=== PATIENT | male | born 1965 | race Caucasian/White ===

== ENCOUNTER 2018-05-20 20:17 | Inpatient (IN) ==
[2018-05-20] MEDS ORDERED: ONDANSETRON 4 MG/2 ML VIAL IV STA (20:41)
[2018-05-20] MEDS ORDERED: ALUM/MAG/SIMETH/LIDO VISC 1:1 30 ML BOTTLE PO STA (20:41)
[2018-05-20] MEDS ORDERED: MORPHINE 4 MG/1 ML VIAL ONE (20:58)
[2018-05-20] MEDS ORDERED: MORPHINE 4 MG/1 ML VIAL IV STA ×2 (20:58→21:46)
[2018-05-20] MEDS ORDERED: hydrALAZINE 20 MG/1 ML VIAL IV STA (21:00)
[2018-05-20 21:08] LABS: Basophils # 0.1 10*3/uL (0.0-0.2); Basophils % 1.7 % (0.0-0.8); Eosinophils # 0.4 10*3/uL (0.0-0.87); Eosinophils % 5.4 % (0.00-10.9); Hematocrit 44.8 VOL% (42.0-52.0); Hemoglobin 15.3 GM/DL (14.0-18.0); Immature Granulocytes % 0.7 %; Immature Granulocytes Absolute 0.06 #; Lymphocytes # 2.8 10*3/uL (1.4-4.0); Lymphocytes % 34.5 % (21.2-54.2); Mean Corpuscular HGB Conc 34.2 GM/DL (32-36); Mean Corpuscular Hemoglobin 31 PG (27-34); Mean Corpuscular Volume 90.7 FL (87-102); Mean Platelet Volume 9.4 FL (9.6-12.0); Monocytes # 0.9 10*3/uL (0.11-0.8); Monocytes % 10.6 % (1.7-12.7); Neutrophils # 3.8 10*3/uL (1.4-7.4); Neutrophils % 47.1 % (38.7-73.9); Platelet Count 306 T/CUMM (130-400); Red Blood Count 4.94 MC/CUMM (3.8-5.5); Red Cell Distribution Width 13.1 % (9.3-17.3); White Blood Count 8.1 T/CUMM (4-12)
[2018-05-20 21:31] LABS: Lactic Acid 1.6 MMOL/L (0.4-2.0)
[2018-05-20 21:32] LABS: Alanine Aminotransferase 62 U/L (16-61); Albumin 4.2 G/DL (3.4-5.0); Alkaline Phosphatase 129 U/L (45-117); Aspartate Amino Transferase 36 U/L (0-37); Blood Urea Nitrogen 11 MG/DL (7-18); Calcium 8.8 MG/DL (8.5-10.1); Glucose 107 MG/DL (74-106); Osmolality,Calculated 271.8 MOS/KG (273-304); Potassium 3.4 MMOL/L (3.5-5.1); Sodium 137 MMOL/L (136-145); Total Protein 8.6 G/DL (6.4-8.3); Troponin I < 0.015 NG/ML (0.00-0.045)
[2018-05-20] MEDS ORDERED: PROMETHAZINE INJ 12.5 MG in SODIUM CHLORIDE 0.9% 50 ML IV STA (21:46)
[2018-05-21] MEDS ORDERED: SODIUM CHLORIDE 0.9% 1,000 ML IV STA (01:11)
[2018-05-21] MEDS ORDERED: PIPERACILLIN/TAZOBACTAM 2,250 MG in SODIUM CHLORIDE 0.9% 100 ML IV STA (01:11)
[2018-05-21] MEDS ORDERED: PIPERACILLIN/TAZOBACTAM 3,375 MG in SODIUM CHLORIDE 0.9% 100 ML IV STA (01:14)
[2018-05-21] MEDS ORDERED: ONDANSETRON 4 MG/2 ML VIAL IV PRN (01:39)
[2018-05-21] MEDS: MORPHINE 4 MG/1 ML VIAL IV PRN (02:30)
[2018-05-21] MEDS: DEXTROSE 5% NACL 0.45% 1,000 ML IV SCH ×3 (02:33→22:24)
[2018-05-21 09:24] LABS: Basophils # 0.1 10*3/uL (0.0-0.2); Basophils % 0.4 % (0.0-0.8); Eosinophils % 0.2 % (0.00-10.9); Hematocrit 42.7 VOL% (42.0-52.0); Hemoglobin 14.7 GM/DL (14.0-18.0); Immature Granulocytes % 0.6 %; Immature Granulocytes Absolute 0.08 #; Lymphocytes # 1.5 10*3/uL (1.4-4.0); Lymphocytes % 11.8 % (21.2-54.2); Mean Corpuscular HGB Conc 34.4 GM/DL (32-36); Mean Corpuscular Hemoglobin 31 PG (27-34); Mean Corpuscular Volume 89.5 FL (87-102); Mean Platelet Volume 9.4 FL (9.6-12.0); Monocytes # 1.4 10*3/uL (0.11-0.8); Monocytes % 10.9 % (1.7-12.7); Neutrophils # 9.7 10*3/uL (1.4-7.4); Neutrophils % 76.1 % (38.7-73.9); Platelet Count 254 T/CUMM (130-400); Red Blood Count 4.77 MC/CUMM (3.8-5.5); Red Cell Distribution Width 13.3 % (9.3-17.3); White Blood Count 12.7 T/CUMM (4-12)
[2018-05-21] MEDS: cefOXitin 2,000 MG in SYRINGE 1 EACH IV SCH ×2 (09:28→19:24)
[2018-05-21 09:59] LABS: Albumin 3.9 G/DL (3.4-5.0); Bilirubin,Total 1.6 MG/DL (0.2-1.0); Calcium 8.7 MG/DL (8.5-10.1); Osmolality,Calculated 268.1 MOS/KG (273-304); Potassium 3.9 MMOL/L (3.5-5.1); Total Protein 7.8 G/DL (6.4-8.3)
[2018-05-21] MEDS: PANTOPRAZOLE 40 MG TABLET PO SCH (11:19)
[2018-05-21] MEDS ORDERED: TISSUE ADHESIVE 1 EACH APPLICATOR TOP ONE (14:09)
[2018-05-21] MEDS ORDERED: LIDOCAINE 1%/EPI INJ 20 ML VIAL ONE (14:09)
[2018-05-21] MEDS ORDERED: SUGAMMADEX 200 MG/2 ML VIAL IV ONE (15:15)
[2018-05-21] MEDS ORDERED: fentaNYL 100 MCG/2 ML VIAL ONE (15:31)
[2018-05-21] MEDS ORDERED: MIDAZOLAM 2 MG/2 ML VIAL ONE (15:31)
[2018-05-21] MEDS ORDERED: PROPOFOL 200 MG/20 ML VIAL IV ONE (15:31)
[2018-05-21] MEDS ORDERED: ONDANSETRON 4 MG/2 ML VIAL ONE (15:31)
[2018-05-21] MEDS ORDERED: LACTATED RINGERS 1,000 ML IV ONE (15:32)
[2018-05-21] MEDS ORDERED: SODIUM CHLORIDE 0.9% 100 ML IV ONE (15:32)
[2018-05-21] MEDS ORDERED: ROCURONIUM 100 MG/10 ML VIAL IV ONE (15:32)
[2018-05-21] MEDS ORDERED: NEOSTIGMINE 10 MG/10 ML VIAL ONE (15:32)
[2018-05-21] MEDS ORDERED: GLYCOPYRROLATE 0.4 MG/2 ML VIAL ONE (15:32)
[2018-05-21] MEDS ORDERED: PHENYLEPHRINE 1 MG/10 ML SYRINGE IV ONE (15:35)
[2018-05-21] MEDS ORDERED: HYDROmorphone 2 MG/1 ML VIAL ONE (15:48)
[2018-05-21] MEDS ORDERED: HYDROmorphone 2 MG/1 ML VIAL IV PRN (15:49)
[2018-05-22] MEDS: DEXTROSE 5% NACL 0.45% 1,000 ML IV SCH ×4 (05:11→23:42)
[2018-05-22 07:44] LABS: Basophils # 0.1 10*3/uL (0.0-0.2); Basophils % 0.5 % (0.0-0.8); Eosinophils # 0.1 10*3/uL (0.0-0.87); Eosinophils % 1.2 % (0.00-10.9); Hematocrit 41.3 VOL% (42.0-52.0); Hemoglobin 13.7 GM/DL (14.0-18.0); Immature Granulocytes % 0.4 %; Immature Granulocytes Absolute 0.05 #; Lymphocytes % 17.7 % (21.2-54.2); Mean Corpuscular HGB Conc 33.2 GM/DL (32-36); Mean Corpuscular Hemoglobin 31 PG (27-34); Mean Corpuscular Volume 92.2 FL (87-102); Mean Platelet Volume 9.3 FL (9.6-12.0); Monocytes # 1.4 10*3/uL (0.11-0.8); Monocytes % 12.4 % (1.7-12.7); Neutrophils # 7.7 10*3/uL (1.4-7.4); Neutrophils % 67.8 % (38.7-73.9); Platelet Count 232 T/CUMM (130-400); Red Blood Count 4.48 MC/CUMM (3.8-5.5); Red Cell Distribution Width 13.8 % (9.3-17.3); White Blood Count 11.4 T/CUMM (4-12)
[2018-05-22 08:22] LABS: Albumin 3.4 G/DL (3.4-5.0); Bilirubin,Total 1.6 MG/DL (0.2-1.0); Calcium 8.5 MG/DL (8.5-10.1); Osmolality,Calculated 270.8 MOS/KG (273-304); Total Protein 7.2 G/DL (6.4-8.3)
[2018-05-22] MEDS: PANTOPRAZOLE 40 MG TABLET PO SCH (09:03)
[2018-05-22] MEDS: PIPERACILLIN/TAZOBACTAM 3,375 MG in SODIUM CHLORIDE 0.9% 100 ML IV SCH ×2 (09:38→17:28)
[2018-05-22] MEDS: MORPHINE 4 MG/1 ML VIAL IV PRN (11:44)
[2018-05-23] MEDS: PIPERACILLIN/TAZOBACTAM 3,375 MG in SODIUM CHLORIDE 0.9% 100 ML IV SCH ×2 (00:35→09:00)
[2018-05-23 04:29] LABS: Basophils # 0.1 10*3/uL (0.0-0.2); Eosinophils # 0.3 10*3/uL (0.0-0.87); Eosinophils % 4.6 % (0.00-10.9); Hematocrit 39.2 VOL% (42.0-52.0); Hemoglobin 12.7 GM/DL (14.0-18.0); Immature Granulocytes % 0.4 %; Immature Granulocytes Absolute 0.03 #; Lymphocytes # 1.5 10*3/uL (1.4-4.0); Mean Corpuscular HGB Conc 32.4 GM/DL (32-36); Mean Corpuscular Hemoglobin 30 PG (27-34); Mean Corpuscular Volume 93.1 FL (87-102); Mean Platelet Volume 10.2 FL (9.6-12.0); Monocytes # 0.9 10*3/uL (0.11-0.8); Monocytes % 12.7 % (1.7-12.7); Neutrophils # 4.1 10*3/uL (1.4-7.4); Neutrophils % 59.3 % (38.7-73.9); Platelet Count 193 T/CUMM (130-400); Red Blood Count 4.21 MC/CUMM (3.8-5.5); Red Cell Distribution Width 13.8 % (9.3-17.3); White Blood Count 6.9 T/CUMM (4-12)
[2018-05-23 04:52] LABS: Albumin 2.8 G/DL (3.4-5.0); Bilirubin,Total 1.8 MG/DL (0.2-1.0); Calcium 7.6 MG/DL (8.5-10.1); Osmolality,Calculated 275.4 MOS/KG (273-304); Total Protein 6.9 G/DL (6.4-8.3)
[2018-05-23] MEDS: PANTOPRAZOLE 40 MG TABLET PO SCH (09:01)
[2018-05-23] MEDS: DEXTROSE 5% NACL 0.45% 1,000 ML IV SCH (10:39)
[2018-05-23] MEDS ORDERED: POLYETHYLENE GLYCOL POWDER 17 GM PACK PO PRN (14:27)
[2018-05-24 06:25] LABS: Albumin 3.3 G/DL (3.4-5.0); Bilirubin,Total 1.3 MG/DL (0.2-1.0); Calcium 8.8 MG/DL (8.5-10.1); Osmolality,Calculated 271.8 MOS/KG (273-304); Total Protein 7.5 G/DL (6.4-8.3)
[2018-05-24 08:57] VITALS: BP 136/88
[2018-05-24] MEDS: PANTOPRAZOLE 40 MG TABLET PO SCH (09:51)
== END 2018-05-24 10:11 | disposition home or self-care (01) | DRG 418 ==
LOC: N.ED 20:17 → N.EDINP 05-21 01:38 → N.4E 05-21 02:11
PROVIDERS: ADMIT Surgery; ATTEND Surgery
PROC: LAPCHOL (2018-05-21 14:23)

== ENCOUNTER 2018-11-07 03:16 | Inpatient (IN) ==
[2018-11-07] MEDS ORDERED: ONDANSETRON 4 MG/2 ML VIAL IV STA (04:46)
[2018-11-07] MEDS ORDERED: KETOROLAC 30 MG/1 ML VIAL IV STA (04:46)
[2018-11-07] MEDS ORDERED: HYDROmorphone 2 MG/1 ML VIAL IV STA (04:46)
[2018-11-07] MEDS ORDERED: SODIUM CHLORIDE 0.9% 1,000 ML IV STA (04:46)
[2018-11-07 05:00] LABS: Basophils # 0.1 10*3/uL (0.0-0.2); Basophils % 0.8 % (0.0-0.8); Eosinophils # 0.3 10*3/uL (0.0-0.87); Eosinophils % 3.2 % (0.00-10.9); Hematocrit 42.8 VOL% (42.0-52.0); Hemoglobin 14.8 GM/DL (14.0-18.0); Immature Granulocytes % 0.6 %; Immature Granulocytes Absolute 0.06 #; Lymphocytes # 1.2 10*3/uL (1.4-4.0); Mean Corpuscular HGB Conc 34.6 GM/DL (32-36); Mean Corpuscular Volume 91.1 FL (87-102); Mean Platelet Volume 9.7 FL (9.6-12.0); Monocytes % 8.5 % (1.7-12.7); Neutrophils % 73.9 % (38.7-73.9); Platelet Count 244 T/CUMM (130-400); Red Cell Distribution Width 13.3 % (9.3-17.3); White Blood Count 9.4 T/CUMM (4-12)
[2018-11-07 05:29] LABS: Albumin 4.3 G/DL (3.4-5.0); Bilirubin,Total 1.2 MG/DL (0.2-1.0); Calcium 9.2 MG/DL (8.5-10.1); Osmolality,Calculated 276.7 MOS/KG (273-304); Total Protein 7.7 G/DL (6.4-8.3)
[2018-11-07 05:51] LABS: Apearance,Urine CLEAR (Clear); Bilirubin,Urine Negative (Negative); Blood, Urine Negative (Negative); Glucose,Urine (UA) Negative (Negative); Ketones,Urine Negative (Negative); Mucus,Urine Occasional /LPF (Occasional); Nitrite,Urine Negative (Negative); Protein,Urine Negative; RBC,Urine 1 /HPF (0-4); Squamous Epithelial Cell,Urine Occasional /HPF (0-10); Urine Color Yellow (Yellow); Urine Specific Gravity 1.019 (1.001-1.035); WBC,Urine <1 /HPF (0-6)
[2018-11-07] MEDS ORDERED: PROMETHAZINE 25 MG/1 ML VIAL IM PRN (07:34)
[2018-11-07] MEDS ORDERED: ACETAMINOPHEN 325 MG TABLET PO PRN (07:34)
[2018-11-07] MEDS: SODIUM CHLORIDE 0.9% 1,000 ML IV SCH ×3 (09:40→22:28)
[2018-11-07] MEDS: PANTOPRAZOLE 40 MG TABLET PO SCH (09:42)
[2018-11-07] MEDS: ENOXAPARIN 40 MG/0.4 ML SYRINGE SUBCUT SCH (09:42)
[2018-11-07 10:37] LABS: Free T4 (Free Thyroxine) 0.46 NG/DL (0.76-1.46)
[2018-11-07] MEDS: HYDROmorphone 2 MG/1 ML VIAL IV PRN ×2 (14:29→18:58)
[2018-11-07] MEDS: ONDANSETRON 4 MG/2 ML VIAL IV PRN ×2 (14:30→18:57)
[2018-11-07 16:12] LABS: Hepatitis B Core IgM Quant 0.07 Index; Hepatitis B Surface Ag Quant < 0.10 Index; Hepatitis B Surface Ag Result Negative (Negative); Hepatitis C Virus Ab Quant 0.11 Index; Hepatitis C Virus Ab Result Negative (Negative)
[2018-11-07] MEDS: GEMFIBROZIL 600 MG TABLET PO SCH (17:31)
[2018-11-08] MEDS: SODIUM CHLORIDE 0.9% 1,000 ML IV SCH ×4 (03:26→19:46)
[2018-11-08] MEDS: HYDROmorphone 2 MG/1 ML VIAL IV PRN ×3 (04:18→16:01)
[2018-11-08 04:32] LABS: Basophils % 0.4 % (0.0-0.8); Eosinophils # 0.1 10*3/uL (0.0-0.87); Eosinophils % 0.7 % (0.00-10.9); Hematocrit 38.1 VOL% (42.0-52.0); Immature Granulocytes % 0.3 %; Immature Granulocytes Absolute 0.03 #; Lymphocytes # 1.3 10*3/uL (1.4-4.0); Lymphocytes % 12.7 % (21.2-54.2); Mean Corpuscular HGB Conc 34.1 GM/DL (32-36); Mean Corpuscular Volume 92.3 FL (87-102); Mean Platelet Volume 9.8 FL (9.6-12.0); Monocytes % 11.4 % (1.7-12.7); Neutrophils % 74.5 % (38.7-73.9); Platelet Count 202 T/CUMM (130-400); Red Blood Count 4.13 MC/CUMM (3.8-5.5); Red Cell Distribution Width 13.5 % (9.3-17.3); White Blood Count 9.9 T/CUMM (4-12)
[2018-11-08 04:57] LABS: Albumin 3.2 G/DL (3.4-5.0); Bilirubin,Total 2.2 MG/DL (0.2-1.0); Calcium 8.1 MG/DL (8.5-10.1); Osmolality,Calculated 274.5 MOS/KG (273-304); Risk Ratio 4.07; Total Protein 6.3 G/DL (6.4-8.3); VLDL CHOLESTEROL 45.8 MG/DL
[2018-11-08] MEDS: LEVOTHYROXINE 75 MCG TABLET PO SCH (06:11)
[2018-11-08] MEDS: GEMFIBROZIL 600 MG TABLET PO SCH ×2 (09:08→17:19)
[2018-11-08] MEDS: ENOXAPARIN 40 MG/0.4 ML SYRINGE SUBCUT SCH (09:08)
[2018-11-08] MEDS: PANTOPRAZOLE 40 MG TABLET PO SCH (09:08)
[2018-11-08 15:47] LABS: Albumin 3.4 G/DL (3.4-5.0); Bilirubin,Total 3.7 MG/DL (0.2-1.0); Calcium 8.2 MG/DL (8.5-10.1); Total Protein 6.9 G/DL (6.4-8.3)
[2018-11-09] MEDS: SODIUM CHLORIDE 0.9% 1,000 ML IV SCH ×4 (00:33→20:23)
[2018-11-09 04:54] LABS: Basophils # 0.1 10*3/uL (0.0-0.2); Basophils % 0.5 % (0.0-0.8); Eosinophils # 0.1 10*3/uL (0.0-0.87); Eosinophils % 1.2 % (0.00-10.9); Hematocrit 35.2 VOL% (42.0-52.0); Hemoglobin 11.6 GM/DL (14.0-18.0); Immature Granulocytes % 0.6 %; Immature Granulocytes Absolute 0.06 #; Lymphocytes # 1.7 10*3/uL (1.4-4.0); Lymphocytes % 17.5 % (21.2-54.2); Mean Corpuscular Volume 94.6 FL (87-102); Monocytes % 13.9 % (1.7-12.7); Neutrophils % 66.3 % (38.7-73.9); Platelet Count 180 T/CUMM (130-400); Red Blood Count 3.72 MC/CUMM (3.8-5.5); Red Cell Distribution Width 13.8 % (9.3-17.3); White Blood Count 9.8 T/CUMM (4-12)
[2018-11-09] MEDS: LEVOTHYROXINE 75 MCG TABLET PO SCH (05:34)
[2018-11-09 08:19] LABS: Albumin 3.3 G/DL (3.4-5.0); Bilirubin,Total 4.6 MG/DL (0.2-1.0); Calcium 8.3 MG/DL (8.5-10.1); Osmolality,Calculated 274.5 MOS/KG (273-304); Total Protein 6.9 G/DL (6.4-8.3)
[2018-11-09] MEDS: PANTOPRAZOLE 40 MG TABLET PO SCH (08:55)
[2018-11-09] MEDS: GEMFIBROZIL 600 MG TABLET PO SCH (08:55)
[2018-11-09] MEDS: ENOXAPARIN 40 MG/0.4 ML SYRINGE SUBCUT SCH (09:12)
[2018-11-09] MEDS: HYDROmorphone 2 MG/1 ML VIAL IV PRN ×3 (09:12→20:23)
[2018-11-09] MEDS: PIPERACILLIN/TAZOBACTAM 3,375 MG in SODIUM CHLORIDE 0.9% 100 ML IV SCH (14:18)
[2018-11-10] MEDS: PIPERACILLIN/TAZOBACTAM 3,375 MG in SODIUM CHLORIDE 0.9% 100 ML IV SCH ×2 (00:36→06:33)
[2018-11-10] MEDS: HYDROmorphone 2 MG/1 ML VIAL IV PRN (02:06)
[2018-11-10 02:51] LABS: Basophils # 0.1 10*3/uL (0.0-0.2); Basophils % 0.8 % (0.0-0.8); Eosinophils # 0.3 10*3/uL (0.0-0.87); Eosinophils % 3.4 % (0.00-10.9); Hematocrit 35.1 VOL% (42.0-52.0); Hemoglobin 11.7 GM/DL (14.0-18.0); Immature Granulocytes % 0.4 %; Immature Granulocytes Absolute 0.04 #; Lymphocytes # 1.3 10*3/uL (1.4-4.0); Mean Corpuscular HGB Conc 33.3 GM/DL (32-36); Mean Corpuscular Volume 93.4 FL (87-102); Monocytes % 12.8 % (1.7-12.7); Neutrophils % 69.6 % (38.7-73.9); Platelet Count 177 T/CUMM (130-400); Red Blood Count 3.76 MC/CUMM (3.8-5.5); Red Cell Distribution Width 13.7 % (9.3-17.3); White Blood Count 9.9 T/CUMM (4-12)
[2018-11-10 03:23] LABS: Albumin 3.1 G/DL (3.4-5.0); Bilirubin,Total 3.8 MG/DL (0.2-1.0); Calcium 8.4 MG/DL (8.5-10.1); Osmolality,Calculated 270.8 MOS/KG (273-304); Total Protein 6.8 G/DL (6.4-8.3)
[2018-11-10] MEDS: LEVOTHYROXINE 75 MCG TABLET PO SCH (06:31)
[2018-11-10] MEDS: SODIUM CHLORIDE 0.9% 1,000 ML IV SCH (06:32)
[2018-11-10] MEDS: PANTOPRAZOLE 40 MG TABLET PO SCH (09:49)
[2018-11-10] MEDS: ENOXAPARIN 40 MG/0.4 ML SYRINGE SUBCUT SCH (09:50)
[2018-11-10 11:57] VITALS: BP 127/76
== END 2018-11-10 12:10 | disposition home or self-care (01) | DRG 440 ==
LOC: N.ED 03:16 → N.EDINP 07:34 → SUATTDRO 07:35 → N.EDINP 12:05 → N.4E 12:20
PROVIDERS: ADMIT Emergency Medicine; ATTEND Internal Medicine